=== PATIENT | male | born 1945 | race Caucasian/White ===

== ENCOUNTER → 2020-10-11 | Outpatient (CLI) | payer MEDICARE, BC, OTHER ==
--- NOTE | 2020-10-17 08:43 | REP ---
INDICATION: SCREENING FOR LUNG CA. COMPARISON: Comparison studies have been retrieved from [facility] dated October 16, 2019 and October 31, 2018.. TECHNIQUE: Dose reduction was performed utilizing CARE dose with automated adjustment of the kV and MAS according to patient size; iterative reconstruction, automated exposure control, as well as adaptive dose shielding. Helical scanning is acquired and 3 millimeter axial images re-formatted at lung windows. FINDINGS: There is multifocal moderate calcific and noncalcific pleural plaquing. 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 This is essentially unchanged. There are granulomatous calcifications again noted in the spleen. There is a 6 millimeter noncalcified pulmonary nodule in the right middle lobe displayed on page 53 of 100 in series 201 of today's study. This is unchanged from the comparison study of October 16, 2019 and October 31, 2018. No other significant pulmonary parenchymal nodule is appreciated. There is a granulomatous lymph node calcification in the subcarinal region. IMPRESSION: Lung RADS category 2 findings. Repeat screening exam suggested in 1 year. <Electronically signed by Alonso Thacker > 10/17/20 7500
== END ==
LOC: M RAD 11:18
PROVIDERS: ATTEND Internal Medicine Pulmonary Disease
DX: R91.8 Other nonspecific abnormal finding of lung field (principal)